=== PATIENT | female | born 1965 | race African-American/Black ===

== ENCOUNTER 2024-06-14 01:28 | Emergency (ER) | payer SELFPAY ==
--- NOTE | 2024-06-14 01:44 | ER ---
Nurse's Notes [facility] Name: Cindy Toth Age: 58 yrs Sex: Female : 1965 Arrival Date: 06/14/2024 Time: 01:28 Bed 6 Private MD: Diagnosis: Encounter for examination of the right ear for foreign body, normal bilateral ear exam, normal physical examination Presentation: 06/14 01:41 Chief complaint: Patient states: i think i have the backing of my air pod in my right lg3 ear. Coronavirus screen: Client denies travel out of the [place] in the last 14 days. At this time, the client does not indicate any symptoms associated with coronavirus-19. Ebola Screen: No symptoms or risks identified at this time. Initial Sepsis Screen: Does the patient meet any 2 criteria? No. Patient's initial sepsis screen is negative. Does the patient have a suspected source of infection? No. Patient's initial sepsis screen is negative. Risk Assessment: Do you want to hurt yourself or someone else? Patient reports no desire to harm self or others. Onset of symptoms was June 14, 2024. 01:41 Method Of Arrival: Ambulatory lg3 01:41 Acuity: COLBY 5 lg3 Triage Assessment: 01:42 General: Appears in no apparent distress. comfortable, Behavior is calm, cooperative, bm8 appropriate for age. 01:42 General: Appears in no apparent distress. comfortable, Behavior is calm, cooperative. lg3 Pain: Complains of pain in right ear Pain currently is 2 out of 10 on a pain scale. EENT: No deficits noted. Ear canal clear on right ear. Neuro: No deficits noted. Cisse Agitation-Sedation Scale (RASS): 0 - Alert and Calm Level of Consciousness is awake, alert, obeys commands, Oriented to person, place, time, situation. Cardiovascular: No deficits noted. Denies chest pain, shortness of breath, Capillary refill < 3 seconds Clubbing of nail beds is absent JVD is absent Patient's skin is warm and dry. Respiratory: No deficits noted. Airway is patent Respiratory effort is even, unlabored, Respiratory pattern is regular, symmetrical. GI: No deficits noted. No signs and/or symptoms were reported involving the gastrointestinal system. : No signs and/or symptoms were reported regarding the genitourinary system. Derm: No deficits noted. No signs and/or symptoms reported regarding the dermatologic system. Skin is intact, is healthy with good turgor, Skin is dry, Skin is normal, Skin temperature is warm. Musculoskeletal: No deficits noted. No signs and/or symptoms reported regarding the musculoskeletal system. Circulation, motion, and sensation intact. Range of motion: intact in all extremities. Historical: - Allergies: 01:42 No Known Allergies; lg3 - Home Meds: :42 None [Active]; lg3 - PMHx: 01:42 None; lg3 - PSHx: 01:42 None; lg3 - Immunization history:: Adult Immunizations up to date. - Infectious Disease History:: Denies. - Family history:: not pertinent. - Social history:: Smoking status: Patient reports the use of cigarette tobacco products, smokes one pack cigarettes per day. Patient uses alcohol, occasionally. Patient/guardian denies using street drugs. Screenin:41 [facility] ED Fall Risk Assessment (Adult) History of falling in the last 3 months, bm8 including since admission No falls in past 3 months (0 pts) Confusion or Disorientation No (0 pts) Intoxicated or Sedated No (0 pts) Impaired Gait No (0 pts) Mobility Assist Device Used No (0 pt) Altered Elimination No (0 pt) Score/Fall Risk Level 0 - 2 = Low Risk Oriented to surroundings, Maintained a safe environment, Educated pt \T\ family on fall prevention, incl call for assistance when getting out of bed, Assessed \T\ reinforced patient's understanding of fall precautions, Hourly rounding (assess needs \T\ fall precautionary measures) done, Used ambulatory aids as needed (educated on \T\ assisted with), Used gait belt as appropriate. Abuse screen: Denies threats or abuse. Nutritional screening: No deficits noted. Tuberculosis screening: No symptoms or risk factors identified. Assessment: :41 Reassessment: after exam by provider no foreign body noted. Pain: Denies pain. bm8 Vital Signs: :41 BP 143 / 84; Pulse 65; Resp 16 S; Temp 97.8(O); Pulse Ox 98% on R/A; Weight 87.09 kg lg3 (R); Height 5 ft. 7 in. (R); Pain 2/10; :41 Body Mass Index 30.07 (87.09 kg, 170.18 cm) lg3 01:41 Pain Scale: Adult lg3 Berny Coma Score: 01:40 Eye Response: spontaneous(4). Motor Response: obeys commands(6). Verbal Response: sp4 oriented(5). Total: 15. 01:41 Eye Response: spontaneous(4). Motor Response: obeys commands(6). Verbal Response: bm8 oriented(5). Total: 15. ED Course: 01:33 Patient arrived in ED. gm2 01:34 Bruce Martines, RN is Primary Nurse. bm8 01:40 Valentino Figueroa MD is Attending Physician. sp4 01:41 Patient has correct armband on for positive identification. Bed in low position. Side bm8 rails up X 1. Adult w/ patient. Provided Education on: post er care. 01:41 No provider procedures requiring assistance completed. Patient did not have IV access bm8 during this emergency room visit. 01:42 Triage completed. lg3 01:42 Arm band placed on right wrist. bm8 Administered Medications: No medications were administered Medication: 01:41 VIS not applicable for this client. bm8 Outcome: 01:41 Discharged to home ambulatory, with friend, bm8 01:41 Condition: stable 01:41 Discharge instructions given to patient, friend, Instructed on discharge instructions, follow up and referral plans. Demonstrated understanding of instructions, follow-up care, 01:44 Discharge ordered by . sp4 01:54 Patient left the ED. bm8 Signatures: Kacy Navarrete RN RN lg3 Valentino Figueroa MD MD sp4 Jennifer Cook gm2 Bruce Martines, RN RN bm8
--- NOTE | 2024-06-14 01:44 | EDPHYS ---
Physician Documentation [facility] Name: Cindy Toth Age: 58 yrs Sex: Female : 1965 Arrival Date: 06/14/2024 Time: 01:28 Bed 6 Private MD: ED Physician Valentino Figueroa HPI: 06/14 01:40 This 58 yrs old Black Female presents to ER via Unassigned with complaints of Foreign sp4 Body In Ear. 01:40 58-year-old female presents with concern for foreign body in the right ear canal. sp4 Patient states possibly piece of the apple air Pod. . Historical: - Allergies: 01:42 No Known Allergies; lg3 - Home Meds: :42 None [Active]; lg3 - PMHx: :42 None; lg3 - PSHx: :42 None; lg3 - Immunization history:: Adult Immunizations up to date. - Infectious Disease History:: Denies. - Family history:: not pertinent. - Social history:: Smoking status: Patient reports the use of cigarette tobacco products, smokes one pack cigarettes per day. Patient uses alcohol, occasionally. Patient/guardian denies using street drugs. ROS: 01:40 Constitutional: Negative for fever, chills, and weight loss, Positive possible sp4 foreign body right ear canal 01:40 All other systems are negative, Exam: 01:40 Constitutional: This is a well developed, well nourished patient who is awake, alert, sp4 and in no acute distress. Head/Face: Normocephalic, atraumatic. Eyes: Pupils equal round and reactive to light, extra-ocular motions intact. Lids and lashes normal. Conjunctiva and sclera are not injected. Cornea within normal limits. Periorbital areas with no swelling, redness, or edema. ENT: Nares patent. No nasal discharge, no septal abnormalities noted. Tympanic membranes are normal and external auditory canals are free of foreign bodies. Small amount of cerumen bilaterally in the ear canals without signs of any foreign body. Second look again reveals no sign of foreign body in the right or left ear canal, oropharynx with no redness, swelling, or masses, exudates, or evidence of obstruction, uvula midline. Mucous membranes moist. Neck: Trachea midline, no thyromegaly or masses palpated, and no cervical lymphadenopathy. Supple, full range of motion without nuchal rigidity, or vertebral point tenderness. Chest/axilla: Normal chest wall appearance and motion. Nontender with no deformity. No lesions are appreciated. Cardiovascular: Regular rate and rhythm with a normal S1 and S2. No gallops, murmurs, or rubs. Normal PMI, no JVD. No pulse deficits. Respiratory: Lungs have equal breath sounds bilaterally, clear to auscultation and percussion. No rales, rhonchi or wheezes noted. No increased work of breathing, no retractions or nasal flaring. Abdomen/GI: Soft, with normal bowel sounds. No distension or tympany. No guarding or rebound. No evidence of tenderness throughout. Back: No spinal tenderness. No costovertebral tenderness. Skin: Warm, dry with normal turgor. Normal color with no rashes, no lesions, and no evidence of cellulitis. MS/ Extremity: Pulses equal, no cyanosis. Neurovascular intact. Full, normal range of motion. Neuro: Awake and alert, GCS 15, oriented to person, place, time, and situation. Cranial nerves II-XII grossly intact. Motor strength 5/5 in all extremities. Sensory grossly intact. Psych: Awake, alert, with orientation to person, place and time. Behavior, mood, and affect are within normal limits Vital Signs: 01:41 BP 143 / 84; Pulse 65; Resp 16 S; Temp 97.8(O); Pulse Ox 98% on R/A; Weight 87.09 kg lg3 (R); Height 5 ft. 7 in. (R); Pain 2/10; 01:41 Body Mass Index 30.07 (87.09 kg, 170.18 cm) lg3 01:41 Pain Scale: Adult lg3 Berny Coma Score: 01:40 Eye Response: spontaneous(4). Motor Response: obeys commands(6). Verbal Response: sp4 oriented(5). Total: 15. 01:41 Eye Response: spontaneous(4). Motor Response: obeys commands(6). Verbal Response: bm8 oriented(5). Total: 15. MDM: 01:40 Differential diagnosis: Foreign body, otitis, otitis media, otitis externa. Data sp4 reviewed: vital signs, nurses notes. ED course: On exam and on repeated ear exam no sign of foreign body found in the right or left ear canal. Patient stable for discharge home. 01:44 Medical Screening Exam initiated sp4 Administered Medications: No medications were administered Disposition Summary: 06/14/24 01:44 Discharge Ordered Notes: Location: Home sp4 Problem: new sp4 Symptoms: are resolved sp4 Condition: Stable sp4 Diagnosis - Encounter for examination of the right ear for foreign body, normal bilateral sp4 ear exam, normal physical examination Followup: sp4 - With: Private Physician - When: As needed - Reason: Discharge Instructions: - Discharge Summary Sheet sp4 - Medical Screening Exam sp4 Forms: - Patient Portal Instructions sp4 Signatures: Kacy Navarrete RN RN lg3 Valentino Figueroa MD MD sp4
[2024-06-14 03:01] VITALS: BP 143/84; TEMP 97.8; O2SAT 98
== END 2024-06-14 01:54 | disposition home or self-care (01) ==
LOC: ER 01:28
DX: Z71.1 Person with feared health complaint in whom no diagnosis is made (principal); F17.210 Nicotine dependence, cigarettes, uncomplicated
CPT/HCPCS: 99282